=== PATIENT | male | born 1985 | race Two or more races ===

== ENCOUNTER 2017-04-17 15:52 | Emergency (ER) | payer OTHER ==
[~2017-04-17] VITALS: Ht 170.2 cm; Wt 108.1 kg
[~2017-04-17 15:52] MED LIST: Aspirin E.C. PO; NO HOME MEDS
[2017-04-17] MEDS ORDERED: LAMOTRIGINE100 MG PO (16:09)
[2017-04-17] MEDS ORDERED: ATENOLOL50 MG PO (16:09)
[2017-04-17] MEDS ORDERED: ESCITALOPRAM OX10 MG PO (16:10)
[2017-04-17 16:59] LABS: HEMATOCRIT 47.6 % (38.0-50.0); MCH 29.2 PG (29.0-34.0); MCHC 34.5 G/DL (30.0-36.0); MCV 84.8 FL (86-99); MEAN PLAT.VOLUME 9.9 uM^3 (9.0-12.4); PLATELET COUNT 211 K/uL (156-360); RBC DIS.WIDTH-CV 11.9 % (11.8-14.6); RBC DIS.WIDTH-SD 36.5 % (39-53); RED BLOOD COUNT 5.61 M/uL (4.00-5.50); WHITE BLOOD COUNT 9.4 K/uL (4.1-10.2)
[2017-04-17 17:08] LABS: CHLORIDE 106 mEq/L (99-109); POTASSIUM 4.1 mEq/L (3.7-5.4); SODIUM 140 mEq/L (136-147)
[2017-04-17 17:09] LABS: GLUCOSE 89 mg/dL (70-99)
[2017-04-17 17:11] LABS: ANION GAP 12 MEQ/L (2-14)
[2017-04-17 17:13] LABS: GFR ESTIMATE (CALCULATED) > 59 mL/min/
[2017-04-17 17:14] LABS: UREA NITROGEN (BUN) 13 mg/dL (9-23)
[2017-04-17] MEDS ORDERED: PREDNISONE10 M1 PO (17:24)
[2017-04-17 17:56] VITALS: BP 154/90
== END 2017-04-17 17:57 | disposition home or self-care (01) ==
LOC: EME 15:52
PROVIDERS: Physician Assistant
DX: L10.0 Pemphigus vulgaris (principal); I10 Essential (primary) hypertension
CPT/HCPCS: 80048; 85027; 86038; 99281; 99283; J7512